=== PATIENT | female | born 1935 | race Caucasian/White ===

== ENCOUNTER → 2017-01-22 09:31 | Outpatient (CLI) | payer MEDICARE, OTHER ==
[2016-01-30 11:11] VITALS: BMI 27.2
[~2017-01-22 09:31] MED LIST: ELIQUIS2.5 MG PO; HYZAAR 100-12.51 TAB PO; K-TAB10 MEQ PO; TYLENOL W/CODEI1 TAB PO; ZOCOR20 MG PO
== END | disposition home or self-care (01) ==
LOC: D.MRI 09:31
DX: S83.222A Peripheral tear of medial meniscus, current injury, left knee, initial encounter (principal)